=== PATIENT | male | born 1990 | race Caucasian/White ===

== ENCOUNTER 2019-09-24 12:03 | Emergency (ER) | payer OTHER ==
[~2019-09-24] VITALS: Ht 172.7 cm; Wt 102.3 kg
[2019-09-24 12:04] VITALS: BP 149/77
[2019-09-24] MEDS ORDERED: BENZOCAINE 20% GEL 9GM TUBE (ANBESOL MAX STRENGTH) TOP ONE (12:30)
[2019-09-24] MEDS ORDERED: IBUPROFEN 800 MG TAB PO ONE (12:30)
[2019-09-24] MEDS ORDERED: CLIN150C14 PO (12:54)
== END 2019-09-24 13:00 | disposition home or self-care (01) ==
LOC: M ED 12:03
DX: K02.9 Dental caries, unspecified (principal)